=== PATIENT | male | born 1980 | race Caucasian/White ===

== ENCOUNTER 2018-05-21 11:14 | Emergency (ER) | payer OTHER ==
[~2018-05-21] VITALS: Ht 188 cm; Wt 99.8 kg
[2018-05-21 11:16] VITALS: BP_SYST 145
[2018-05-21] MEDS ORDERED: HYDROcodone/ACETAMIN 10-325 MG TAB PO ONE (12:00)
[2018-05-21] MEDS ORDERED: cefTRIAXone 1 GM VIAL IM ONE (12:00)
[2018-05-21] MEDS ORDERED: IBUPROFEN 800 MG TABLET PO ONE (12:00)
[2018-05-21] MEDS ORDERED: BACITRACIN 1 GM OINT TP ONE (13:21)
[2018-05-21 13:34] VITALS: BP_SYST 138
== END 2018-05-21 13:34 | disposition home or self-care (01) ==
LOC: SED 11:14
DX: S68.113A Complete traumatic metacarpophalangeal amputation of left middle finger, initial encounter (principal); W26.8XXA Contact with other sharp object(s), not elsewhere classified, initial encounter; Y93.89 Activity, other specified; Y92.69 Other specified industrial and construction area as the place of occurrence of the external cause; Y99.8 Other external cause status
CPT/HCPCS: 12002; 73140; 96372; 99284; J0696